=== PATIENT | male | born 1990 | race African-American/Black ===

== ENCOUNTER 2018-12-16 09:34 | Emergency (ER) | payer BC, OTHER ==
[2018-12-16 09:40] VITALS: BP 149/92
--- NOTE | 2018-12-16 09:49 | ER Document Report ---
HPI - HPI Time Seen by Provider: 12/16/18 09:40 Notes: Patient is a 28-year-old male with no significant past medical history who presents complaining of right ear pain for the past 5 to 6 days. Patient states that he has had some nasal congestion and discharge with an occasional dry cough. Patient was placed on amoxicillin which he just finished 2 days ago after having a sore throat. Patient states that his cold symptoms are otherwise mild and the ear is what brought him in today. He has not noticed any discharge. Pain does not radiate. Denies drug allergies. Denies any headache, fever, injury, neck pain, changes in vision/speech/mentation/hearing, tinnitus, dizziness, sore throat, chest pain, palpitations, syncope, shortness of breath, wheeze, dyspnea, abdominal pain, nausea/vomiting/diarrhea, urinary retention, dysuria, hematuria, or rash. - ROS Systems Reviewed and Negative: Yes All other systems reviewed and negative - REPRODUCTIVE Reproductive: DENIES: : Past Medical History - Social History Smoking Status: Never Smoker Family History: Reviewed & Not Pertinent - Past Medical History Cardiac Medical History: Reports: Hx Hypertension Vertical Provider Document - CONSTITUTIONAL Agree With Documented VS: Yes Notes: PHYSICAL EXAMINATION: GENERAL: Well-appearing, well-nourished and in no acute distress. A&Ox4. Answers questions appropriately. Moves comfortably w/o notable distress HEAD: Atraumatic, normocephalic. EYES: Pupils equal round and reactive to light, extraocular movements intact, sclera anicteric, conjunctiva are normal. ENT: Rt EAC tender, no discharge w/o significant swelling/occlusion. Lt EAC wnl. + Tenderness to tragus rt. No mastoid tenderness bilaterally. TM's intact b/l without erythema, fluid, or perforation. Nares patent and with clear discharge. oropharynx no erythema without exudates. No tonsilar hypertrophy without erythema or exudate. No palatine shift. Uvula midline. No tongue protrusion. No drooling, hoarseness, or airway compromise. Moist mucous membranes. No sinus tenderness. NECK: Normal range of motion, supple without lymphadenopathy. No rigidity/meningismus. LUNGS: Breath sounds clear to auscultation bilaterally and equal. No wheezes rales or rhonchi. No retractions HEART: Regular rate and rhythm without murmurs, rubs, gallops. NEUROLOGICAL: Normal speech, normal gait. Ext's: no edema. no asymmetry. PSYCH: Normal mood, normal affect. SKIN: Warm, Dry, normal turgor, no rashes or lesions noted. - INFECTION CONTROL TRAVEL OUTSIDE OF THE [place] IN LAST 30 DAYS: No Course - Re-evaluation Re-evalutation: 12/16/18 09:47 Patient is an afebrile, well-hydrated, 28-year-old male who presents with acute otitis externa of the right ear and URI (suspect URI viral). Vitals are acceptable without significant tachycardia, tachypnea, or hypoxia. PE is otherwise unremarkable. Patient is nontoxic-appearing and is tolerating p.o. without difficulty. No ear wick warranted at this time. No further work-up warranted. Patient recently finished amoxicillin 2 days ago after having a sore throat. Low suspicion for any sepsis, meningitis, severe dehydration, respiratory compromise, mastoiditis, pneumonia, or other systemic emergent condition at this time. Patient is aware that condition can change from initial presentation and he needs to monitor symptoms closely and seek medical attention with any acute changes. Recheck with your PCM in 3 to 5 days. Consider consult with ENT. Return to the ED with any other worsening/concerning symptoms. Patient is in agreement. - Vital Signs Vital signs: Temp Pulse Resp BP Pulse Ox 98.1 F 94 16 149/92 H 98 12/16/18 09:38 12/16/18 09:38 12/16/18 09:38 12/16/18 09:38 12/16/18 09:38 Discharge - Discharge Clinical Impression: Acute URI Acute otitis externa of right ear Qualifiers: Otitis externa type: unspecified type Qualified Code(s): H60.501 - Unspecified acute noninfective otitis externa, right ear Condition: Stable Disposition: HOME, SELF-CARE Instructions: Upper Respiratory Illness ([facility]), Otitis Externa ([facility]), Use of Ear Drops ([facility]) Additional Instructions: Maintain adequate fluid intake Take meds as directed tylenol/ibuprofen as needed Avoid Q-tips in the ears Avoid swimming over the counter cold medication as needed for symptoms F/u: with your PCM in 3-5 days for a recheck Consider consult with ENT Return to the ED with any fever, dizziness, tinnitus, headaches, worsening pain, chest pain, palpitations, syncope, neck pain/stiffness, shortness of breath, wheezing, drooling, trouble swallowing/breathing, abdominal pain, n/v/d, rash, or worsening/concerning symptoms otherwise. Prescriptions: Ciprofloxacin HCl/Dexameth [Ciprodex Otic Suspension 7.5 ml Bottle] 4 drop OT BID #1 bottle Forms: Elevated Blood Pressure, Return to Work Referrals: BRIAN HA DO [ASSOCIATE] - Follow up as needed [facility] [Provider Group] - Follow up in 3-5 days
== END 2018-12-16 09:59 | disposition home or self-care (01) ==
LOC: ER 09:34
DX: J06.9 Acute upper respiratory infection, unspecified (principal); H60.501 Unspecified acute noninfective otitis externa, right ear; R09.81 Nasal congestion; I10 Essential (primary) hypertension
CPT/HCPCS: 99282